=== PATIENT | female | born 1990 | race Two or more races ===

== ENCOUNTER 2018-08-25 13:10 | Emergency (ER) | payer SELFPAY ==
[~2018-08-25] VITALS: Ht 157.5 cm; Wt 96.2 kg
[~2018-08-25 13:10] MED LIST: ALBUTEROL INH; PREN1TAB60 PO; [UNRECOGNIZED DRUG - CODE] PO
[2018-08-25 13:13] VITALS: BP 150/95
--- NOTE | 2018-08-25 13:20 | NUR ---
LEFT HAND AND WRIST PAIN S/P TWISTING WHEN FELL
--- NOTE | 2018-08-25 13:22 | NUR ---
LEFT HAND SWOLLEN
--- NOTE | 2018-08-25 15:18 | NUR ---
SPLINT IN PLACE LEFT FOREARM. [employer]
== END 2018-08-25 15:20 | disposition home or self-care (01) ==
LOC: ED 14:19
DX: S63.502A Unspecified sprain of left wrist, initial encounter (principal); J45.909 Unspecified asthma, uncomplicated; W18.30XA Fall on same level, unspecified, initial encounter; Y93.01 Activity, walking, marching and hiking; Y92.009 Unspecified place in unspecified non-institutional (private) residence as the place of occurrence of the external cause; Y99.8 Other external cause status
CPT/HCPCS: 29125; 99283

== ENCOUNTER 2019-08-14 19:00 | Emergency (ER) | payer OTHER ==
[~2019-08-14] VITALS: Ht 157.5 cm; Wt 109.1 kg
[2019-08-14 20:35] LABS: BASOPHILS # (AUTO) 0.05 x10^3/uL (0-0.1); BASOPHILS % (AUTO) 1 % (0-1); EOSINOPHILS # (AUTO) 0.42 x10^3/uL (0-0.4); EOSINOPHILS % (AUTO) 5 % (1-7); LYMPHOCYTES # (AUTO) 2.65 x10^3/uL (1-3.4); LYMPHOCYTES % (AUTO) 29 % (22-44); MD NO; MEAN CORPUSCULAR HEMOGLOBIN 28.3 pg (27.0-34.8); MEAN CORPUSCULAR HGB CONC 33.3 g/dL (32.4-35.8); MEAN CORPUSCULAR VOLUME 85.2 fL (80-100); MEAN PLATELET VOLUME 8.4 fL (7.4-10.4); MONOCYTES # (AUTO) 0.52 x10^3/uL (0.2-0.8); MONOCYTES % (AUTO) 6 % (2-9); NEUTROPHILS # (AUTO) 5.67 x10^3/uL (1.8-6.8); NEUTROPHILS % (AUTO) 61 % (42-75); PLATELET COUNT 258 x10^3/uL (130-400); RED BLOOD COUNT 4.74 x10^6/uL (3.82-5.3); RED CELL DISTRIBUTION WIDTH 13.7 % (9.6-15.2)
[2019-08-14 20:38] VITALS: BP 135/80
[2019-08-14 20:40] LABS: ALANINE AMINOTRANSFERASE 54 U/L (12-78); ALBUMIN 3.4 g/dL (3.4-5.0); ANION GAP 7 mmol/L (5-15); CALCIUM 8.3 mg/dL (8.5-10.1); CHLORIDE 106 mmol/L (98-107); CREATININE 0.63 mg/dL (0.55-1.02)
[2019-08-14 20:48] LABS: CULTURE INDICATED? YES; MICROSCOPIC INDICATED
[2019-08-14 20:57] LABS: ALKALINE PHOSPHATASE 81 U/L (45-117); BILIRUBIN,TOTAL 0.2 mg/dL (0.2-1.0); TOTAL PROTEIN 7.5 g/dL (6.4-8.2)
== END 2019-08-14 21:48 | disposition home or self-care (01) ==
LOC: ED 19:30
DX: O26.891 Other specified pregnancy related conditions, first trimester (principal); R51 Headache; J45.909 Unspecified asthma, uncomplicated; R94.31 Abnormal electrocardiogram [ECG] [EKG]; Z3A.01 Less than 8 weeks gestation of pregnancy
CPT/HCPCS: 36415; 71046; 76830; 80053; 81001; 84702; 84703; 85025; 87086; 93005; 99285

== ENCOUNTER 2020-03-12 04:13 | Emergency (ER) | payer MEDICAID ==
[~2020-03-12] VITALS: Ht 157.5 cm; Wt 108.2 kg
[2020-03-12] MEDS ORDERED: HYDROcodone/APAP 5/325 TABLET ONE (04:56)
[2020-03-12] MEDS ORDERED: NEOSPORIN OINT. PKT 1 PACKET ONE (05:00)
[2020-03-12] MEDS ORDERED: HYDROcodone/APAP 5/325 TABLET PO ONE (05:00)
[2020-03-12 06:05] VITALS: BP 135/74
== END 2020-03-12 06:08 | disposition home or self-care (01) ==
LOC: ED 05:30
DX: S00.83XA Contusion of other part of head, initial encounter (principal); S00.33XA Contusion of nose, initial encounter; S20.311A Abrasion of right front wall of thorax, initial encounter; Y04.0XXA Assault by unarmed brawl or fight, initial encounter; Y93.89 Activity, other specified; Y92.89 Other specified places as the place of occurrence of the external cause; Y99.8 Other external cause status
CPT/HCPCS: 70450; 70486; 99285